=== PATIENT | female | born 1970 | race Hispanic/Latino ===

== ENCOUNTER → 2017-11-08 | Outpatient (CLI) | payer BC, OTHER | END | disposition home or self-care (01) | LOC: RAH 10:45 | PROVIDERS: ATTEND Nurse Practitioner Adult Health | DX: R31.9 Hematuria, unspecified (principal); Z87.442 Personal history of urinary calculi | CPT/HCPCS: 76770 ==

== ENCOUNTER → 2018-08-24 | Outpatient (CLI) | payer BC, OTHER ==
[~2018-08-24] MED LIST: GADODIAMIDE 10 MMOL/20 ML ML IV ONE
== END | disposition home or self-care (01) ==
LOC: RAH 14:31
PROVIDERS: ATTEND Nurse Practitioner Adult Health
DX: J32.0 Chronic maxillary sinusitis (principal); H53.9 Unspecified visual disturbance; R53.83 Other fatigue; R42 Dizziness and giddiness
CPT/HCPCS: 70553; A9579

== ENCOUNTER → 2019-05-03 | Outpatient (CLI) | payer BC, OTHER ==
[~2019-05-03] MED LIST changes: -GADODIAMIDE 10 MMOL/20 ML ML IV ONE; +IOHEXOL-350 50ML VIAL IV ONE
== END | disposition home or self-care (01) ==
LOC: RAH 09:29
PROVIDERS: ATTEND Nurse Practitioner Adult Health
DX: K11.8 Other diseases of salivary glands (principal)
CPT/HCPCS: 70492; Q9967